=== PATIENT | female | born 1965 | race Hispanic/Latino ===

== ENCOUNTER 2017-09-16 10:43 | Emergency (ER) | payer OTHER ==
[2017-09-16 10:51] VITALS: BP 138/81; PULSE 82; RESP 20; TEMP 98.1; O2SAT 100
[2017-09-16] MEDS ORDERED: Naproxen 550 mg Tab PO STA (11:01)
[2017-09-16] MEDS ORDERED: Naproxen 550 mg Tab PO ONE (11:07)
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
== END 2017-09-16 12:22 | disposition home or self-care (01) ==
LOC: C.ER 10:43
DX: R07.89 Other chest pain (principal)